=== PATIENT | female | born 1995 | race Caucasian/White ===

== ENCOUNTER 2018-03-10 20:13 | Emergency (ER) | payer SELFPAY ==
--- NOTE | 2018-03-10 20:15 | ED Physician Documentation ---
General Adult - HISTORIAN Historian: patient - HPI Stated Complaint: nausea vomiting and diarrhea Chief Complaint: Nausea,Vomiting,Diarrhea Onset: hours (12) Timing: still present Severity: moderate Further Comments: yes (She reports since 6-7 am she has had nausea vomiting and diarrhea. She denies a fever although she has had chills. no abdominal pain. she had her last normal bowel movement 3 days ago . She was exposed to GI illness from a child. She has no rash. NO new food exposures.) - ROS CONST: fever, weakness, chills EYES/ENT: none CVS/RESP: denies: cough GI/: vomiting, nausea, diarrhea MS/SKIN/LYMPH: denies: rash NEURO/PSYCH: headache - PAST HX Past History: none Immunizations: UTD Allergies/Adverse Reactions: Allergies Allergy/AdvReac Type Severity Reaction Status Date / Time aspirin Allergy Severe Face Verified 03/10/18 22:52 Swelling Home Medications: Ambulatory Orders Medication Instructions Recorded NK 03/10/18 - SOCIAL HX Smoking History: cigarettes Alcohol Use: none Drug Use: none - FAMILY HX Family History: No - REVIEWED ASSESSMENTS Nursing Assessment Reviewed: Yes Vitals Reviewed: Yes Progress - Progress Progress: 2137: nausea is improved DG 222: nausea is improved. she does note a headache. DG 2245: Headache improved requesting to go home now DG General Adult Physical Exam - PHYSICAL EXAM GENERAL APPEARANCE: no distress EENT: eye inspection normal, ENT inspection normal, dry mucous membranes RESPIRATORY: no resp distress, chest non-tender, breath sounds normal CVS: reg rate & rhythm, heart sounds normal ABDOMEN: soft, no distension, non-tender, abnormal bowel sounds (hyperactive ) BACK: normal inspection, no CVA tenderness SKIN: warm/dry, pallor EXTREMITIES: non-tender, normal range of motion, no evidence of injury, no edema NEURO: oriented X3, CN's nml as tested Discharge Clincal Impression: Nausea & vomiting Qualifiers: Vomiting type: unspecified Vomiting Intractability: unspecified Qualified Code(s): R11.2 - Nausea with vomiting, unspecified Referrals: Primary Doctor,No [Primary Care Provider] - 2 Days Comments: 1. Zofran 4 mg take 1 by mouth every 8 hours as needed for nausea 2. Increase fluids 3. OTC meds as directed for headache, pain or fever 4. Follow up with PCP in 2-4 days if no improvement 5 Return to ER for any concerns Condition: Stable Disposition: 01 HOME, SELF-CARE Decision to Admit: NO Date of Decison to Admit: 03/10/18 Decision Time: 22:49
[2018-03-10] MEDS ORDERED: 0.9 % SODIUM CHLORIDE 1,000 ML IV ONE ×2 (20:38→21:38)
[2018-03-10] MEDS ORDERED: ONDANSETRON HCL/PF 4 MG/ 2ML VIAL IVP ONE (20:38)
[2018-03-10 21:08] LABS: BASOPHILS % 0.4 (0.0-1.5); EOSINOPHILS % 1.9 % (0.0-6.8); MEAN CORPUSCULAR HEMOGLOBIN 28.6 pg (28.0-34.0); MONOCYTES % 4.1 % (0.0-11.0); NEUTROPHILS # 10.7 # k/uL (1.4-7.7)
[2018-03-10 21:15] LABS: eGFR (Non-African) > 60
[2018-03-10] MEDS ORDERED: KETOROLAC TROMETHAMINE 30 MG/1ML VIAL IVP ONE (22:25)
[2018-03-10] MEDS ORDERED: ONDANSETRON HCL 4 MG TAB.RAPDIS PO ONE (22:49)
[2018-03-11 00:49] VITALS: BP 108/70
== END 2018-03-10 23:10 | disposition home or self-care (01) ==
LOC: ED 20:13
DX: R11.2 Nausea with vomiting, unspecified (principal)
CPT/HCPCS: 36415; 80053; 80320; 84703; 85025; 96365; 96375; 99282; 99284; A9270; J1885; J2405; J7030; G0480; S1016